=== PATIENT | male | born 2000 | race African-American/Black ===

== ENCOUNTER 2023-02-25 17:24 | Emergency (ER) | payer BC ==
[~2023-02-25] VITALS: Ht 185.4 cm; Wt 74.8 kg
--- NOTE | 2023-02-25 19:03 | NUR ---
Gave pt d/c instructions, pt verbalized understanding.
== END 2023-02-25 19:05 | disposition home or self-care (01) ==
LOC: ER 17:34
DX: S00.33XA Contusion of nose, initial encounter (principal); W54.1XXA Struck by dog, initial encounter; Y93.89 Activity, other specified; Y92.89 Other specified places as the place of occurrence of the external cause; Y99.8 Other external cause status
CPT/HCPCS: 70160; A4663